=== PATIENT | female | born 2000 | race Caucasian/White ===

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

== ENCOUNTER 2022-08-03 00:25 | Emergency (ER) | payer MEDICAID ==
[~2022-08-03] VITALS: Ht 167.6 cm; Wt 49.1 kg
[~2022-08-03 00:25] MED LIST: ONDA4TAB6 PO
[2022-08-03 00:34] VITALS: BP 108/66
[2022-08-03 01:19] LABS: CLARITY,URINE CLEAR (Clear); COLOR,URINE YELLOW (Yellow); GLUCOSE, URINE NEGATIVE (Neg); KETONES,URINE NEGATIVE (Neg); LEUKOCYTE ESTERASE ,URINE NEGATIVE (Neg); NITRITES, URINE NEGATIVE (Neg); OCCULT BLOOD,URINE NEGATIVE (Neg); PH,URINE 6.5 (4.8-8.0); PROTEIN,URINE NEGATIVE (Neg); UROBILINOGEN,URINE 0.2 E.U/dL (0.2-1.0)
[2022-08-03 01:20] LABS: URINE HCG NEGATIVE (NEG)
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
[2022-08-03 01:25] LABS: UA COLLECTION TYPE CLN CATCH MIDSTREAM
== END 2022-08-03 02:21 | disposition left against medical advice (07) ==
LOC: ER 00:26
DX: R45.6 Violent behavior (principal); Z53.21 Procedure and treatment not carried out due to patient leaving prior to being seen by health care provider
CPT/HCPCS: 81003; 81025